=== PATIENT | male | born 1965 | race Two or more races ===

== ENCOUNTER 2022-04-19 22:38 | Emergency (ER) | payer OTHER ==
[~2022-04-19] VITALS: Ht 175.3 cm; Wt 88.5 kg
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
[2022-04-20] MEDS ORDERED: NAPROXEN 250 MG TABLET ONE (00:16)
[2022-04-20] MEDS ORDERED: NAPROXEN 250 MG TABLET PO ONE (00:30)
--- NOTE | 2022-04-20 03:25 | NUR ---
Patient discharged to home in stable condition. Written and verbal after care instructions given. Patient verbalizes understanding of instruction.
[2022-04-20 03:28] VITALS: BP 122/68
== END 2022-04-20 03:28 | disposition home or self-care (01) ==
LOC: ER 22:40
DX: S80.12XA Contusion of left lower leg, initial encounter (principal); M79.605 Pain in left leg; Z60.2 Problems related to living alone; W50.1XXA Accidental kick by another person, initial encounter; Y93.66 Activity, soccer; Y92.89 Other specified places as the place of occurrence of the external cause; Y99.8 Other external cause status
CPT/HCPCS: 73590-TC; 73610-TC; 93971-TC